=== PATIENT | female | born 1990 | race American Indian/Alaskan Native ===

== ENCOUNTER 2017-01-30 17:08 | Emergency (ER) | payer OTHER ==
[~2017-01-30] VITALS: Ht 160 cm; Wt 80.0 kg
[~2017-01-30 17:08] MED LIST: TRAM100T2 PO
[2017-01-30 17:56] LABS: HEMATOCRIT 35.3 % (34.6-47.8); HEMOGLOBIN 11.4 g/dL (11.7-16.4); WHITE BLOOD COUNT 7.4 x10^3/uL (3.4-10)
[2017-01-30 18:07] LABS: ASPARTATE AMINO TRANSFERASE 13 U/L (15-37); BLOOD UREA NITROGEN 9 mg/dL (7-18)
[2017-01-30] MEDS ORDERED: ONDANSETRON 2MG/ML, 2ML IVPush ONE (19:30)
[2017-01-30] MEDS ORDERED: MORPHINE SULFATE 4 MG/ML, 1ML IVPush PRN (19:30)
[2017-01-30] MEDS ORDERED: morphine SULFATE 10 MG/ML, 1ML ONE ×2 (19:32→19:43)
[2017-01-30] MEDS ORDERED: ONDANSETRON 2MG/ML, 2ML ONE (19:33)
[2017-01-30 20:08] LABS: HCG UR LOT HCG7030192
[2017-01-30 20:21] LABS: HCG UR OBC PASS
[2017-01-30] MEDS ORDERED: OMNIPAQUE 350 MG/ML, 100ML BOTTLE ONE (21:10)
[2017-01-30] MEDS ORDERED: LORazepam 2 MG/ML, 1ML ONE (21:13)
[2017-01-30] MEDS ORDERED: LORazepam 2 MG/ML, 1ML IVPush ONE (21:30)
[2017-01-30 22:48] VITALS: BP 123/62
== END 2017-01-30 22:51 | disposition home or self-care (01) ==
LOC: ED 21:56
DX: R10.11 Right upper quadrant pain (principal); R10.12 Left upper quadrant pain; R07.89 Other chest pain; N39.0 Urinary tract infection, site not specified
CPT/HCPCS: 36415; 70450; 71010; 71275; 74175; 76700; 80053; 81001; 81025; 83690; 85025; 85379; 87086; 93005; 96374; 96375; 99285; J2060; J2405; Q9967

== ENCOUNTER 2018-05-12 19:23 | Emergency (ER) | payer SELFPAY ==
[~2018-05-12] VITALS: Ht 157.5 cm; Wt 77.0 kg
[~2018-05-12 19:23] MED LIST changes: -TRAM100T2 PO; +TRAM100T33 PO
[2018-05-12 19:32] VITALS: BP 121/80
--- NOTE | 2018-05-12 19:42 | NUR ---
REMOVED ALL PT'S PERSONAL BELONGINGS FROM ROOM AND PLACED IN SECURITY LOCKER (1 BAG), GARAGE DOORS DOWN. PROVIDED PT WITH URINE CUP, PT UNABLE TO VOID AT THIS TIME. PT DENIES ANY SI/HI THOUGHTS AT THIS TIME. ERP TO SEE PT, AWAITING ORDERS Addendum: 05/13/18 at 0003 by CHOLO cupola charger notified of si status
[2018-05-12 20:11] LABS: BASOPHILS # (AUTO) 0.05 x10^3/uL (0-0.1); BASOPHILS % (AUTO) 1 % (0-1); EOSINOPHILS # (AUTO) 0.07 x10^3/uL (0-0.4); EOSINOPHILS % (AUTO) 1 % (1-7); LYMPHOCYTES # (AUTO) 1.79 x10^3/uL (1-3.4); LYMPHOCYTES % (AUTO) 19 % (22-44); MD NO; MEAN CORPUSCULAR HEMOGLOBIN 22.4 pg (27.0-34.8); MEAN CORPUSCULAR VOLUME 70.1 fL (80-100); MEAN PLATELET VOLUME 8.5 fL (7.4-10.4); MONOCYTES # (AUTO) 0.44 x10^3/uL (0.2-0.8); MONOCYTES % (AUTO) 5 % (2-9); NEUTROPHILS # (AUTO) 7.32 x10^3/uL (1.8-6.8); NEUTROPHILS % (AUTO) 76 % (42-75); PLATELET COUNT 350 x10^3/uL (130-400); RED BLOOD COUNT 4.97 x10^6/uL (3.82-5.3); RED CELL DISTRIBUTION WIDTH 18.5 % (9.6-15.2)
[2018-05-12 20:19] LABS: ALBUMIN 3.5 g/dL (3.4-5.0); ANION GAP 6 mmol/L (5-15); CALCIUM 8.5 mg/dL (8.5-10.1); CHLORIDE 108 mmol/L (98-107); CREATININE 0.76 mg/dL (0.55-1.02)
[2018-05-12 20:20] LABS: ACETAMINOPHEN < 2 mcg/mL (10-30); SALICYLATE LEVEL < 1.7 mg/dL (2.8-20.0)
--- NOTE | 2018-05-12 20:33 | NUR ---
pt resting on gurney, room remains secured, denies needs, nad. awaiting tele psych consult at this time
--- NOTE | 2018-05-12 20:46 | NUR ---
PT UP TO RR WITH STEADY GAIT, URINE CUP PROVIDED FOR SAMPLE.
[2018-05-12 21:18] LABS: HCG UR SG 1.015 (1.003-1.030)
[2018-05-12 21:31] LABS: AMPHETAMINE SCREEN, URINE Negative (Negative); BARBITURATE SCREEN, URINE Negative (Negative); BENZODIAZEPINE SCREEN, URINE Negative (Negative); CANNABINOID SCREEN, URINE Negative (Negative); COCAINE SCREEN, URINE Negative (Negative); METHADONE SCREEN, URINE Negative (Negative); OPIATE SCREEN, URINE Negative (Negative)
--- NOTE | 2018-05-12 22:00 | NUR ---
pt resting on gurney, denies needs, nad, respirations even and unlabored
--- NOTE | 2018-05-12 23:17 | NUR ---
PT RESTING ON DARCIE ROMO, MILE.
--- NOTE | 2018-05-12 23:18 | NUR ---
telepsych initiated, [id number] bot placed at bs.
--- NOTE | 2018-05-13 00:07 | NUR ---
pt resting with eyes closed, opens eyes to verbal response, denies needs at this time
--- NOTE | 2018-05-13 00:38 | NUR ---
report given to otto polanco. pt transferred to ed room 40
--- NOTE | 2018-05-13 00:44 | NUR ---
Received patient and patient report from PABLO Gillespie. Pt is resting comfortably awaiting telepsyc. Pt states that all of her needs are met. Sitter in place.
--- NOTE | 2018-05-13 01:18 | NUR ---
Pt sleeping and in no apparent distress. Chest rising symetrically. Sitter in place. Telepsyc monitor in place. Will continue to monitor.
--- NOTE | 2018-05-13 02:52 | NUR ---
Gloria yap in [facility] - 05/13/18 at 0253 by SJ Spoke with telepysc pycsiatris
--- NOTE | 2018-05-13 02:53 | NUR ---
Spoke with [facility] psyciatrist and technical publications writer gave him the name and number of friend of Chelle. Psyciatrist will contact friend so Swathi can be released to him. Pt is currently resting in bed.
--- NOTE | 2018-05-13 03:02 | NUR ---
Nurse received follow-up call from psyciatrist and he recommended that pt be released under the care of her friend. Psyciatrist stated that he would fax over recommendations shortly. Pt is currently in resting in bed. Sitter at bedside.
--- NOTE | 2018-05-13 04:05 | NUR ---
Pt sleeping in bed. Equal chest rise and fall. Sitter at door.
--- NOTE | 2018-05-13 04:57 | NUR ---
Education materials and follow-up paperwork given and explained to patient. Pt verbalized understanding. Pt collected her belongings and discharged with friend.
== END 2018-05-13 05:08 | disposition home or self-care (01) ==
LOC: ED 22:38
DX: F33.9 Major depressive disorder, recurrent, unspecified (principal); R45.851 Suicidal ideations; Z88.2 Allergy status to sulfonamides
CPT/HCPCS: 36415; 80048; 80307; 80329; 81025; 82040; 85025; 99284; G0480

== ENCOUNTER 2018-06-18 07:51 | Emergency (ER) | payer MEDICAID ==
[~2018-06-18] VITALS: Ht 157.5 cm; Wt 76.4 kg
--- NOTE | 2018-06-18 08:20 | NUR ---
PT TO ROOM FROM LOBBY
--- NOTE | 2018-06-18 08:30 | NUR ---
PT TO U/S VIA DEMETRIUS
[2018-06-18 08:41] LABS: CULTURE INDICATED? YES; MICROSCOPIC INDICATED
[2018-06-18 08:43] LABS: BASOPHILS # (AUTO) 0.05 x10^3/uL (0-0.1); BASOPHILS % (AUTO) 1 % (0-1); EOSINOPHILS # (AUTO) 0.08 x10^3/uL (0-0.4); EOSINOPHILS % (AUTO) 1 % (1-7); LYMPHOCYTES # (AUTO) 1.92 x10^3/uL (1-3.4); LYMPHOCYTES % (AUTO) 26 % (22-44); MD NO; MEAN CORPUSCULAR HEMOGLOBIN 22.3 pg (27.0-34.8); MEAN CORPUSCULAR HGB CONC 31.6 g/dL (32.4-35.8); MEAN CORPUSCULAR VOLUME 70.5 fL (80-100); MEAN PLATELET VOLUME 9.1 fL (7.4-10.4); MONOCYTES # (AUTO) 0.28 x10^3/uL (0.2-0.8); MONOCYTES % (AUTO) 4 % (2-9); NEUTROPHILS # (AUTO) 4.95 x10^3/uL (1.8-6.8); NEUTROPHILS % (AUTO) 68 % (42-75); PLATELET COUNT 356 x10^3/uL (130-400); RED BLOOD COUNT 5.21 x10^6/uL (3.82-5.3); RED CELL DISTRIBUTION WIDTH 18.2 % (9.6-15.2)
[2018-06-18 08:46] LABS: ALBUMIN 3.8 g/dL (3.4-5.0); ANION GAP 5 mmol/L (5-15); CHLORIDE 111 mmol/L (98-107)
--- NOTE | 2018-06-18 09:25 | NUR ---
trent RN: RN at bedside to donnie jenkins MD unable to complete exam d/t pt's discomfort. states that pt does not have any external rash or lesions, pt does have lesion inside of vagina. MD instructing pt to follow up w/ OBGYN. pt in bed, NAD, no needs at this time, awaiting DC. Report to PABLO Briceño.
--- NOTE | 2018-06-18 09:28 | NUR ---
REPORT RECEIVED, CARE ASSUMED.
[2018-06-18 10:04] VITALS: BP 103/61
--- NOTE | 2018-06-18 10:04 | NUR ---
PT LAYING ON GURNEY. PT PROVIDED WITH SELF CLEANING SUPPLIES. NO IV TO DC. REVIEWED DC INSTRUCTIONS WITH PT. UNDERSTANDING VERBALIZED. PT LEFT AMB, GAIT STEADY.
== END 2018-06-18 10:06 | disposition home or self-care (01) ==
LOC: ED 08:46
DX: A60.04 Herpesviral vulvovaginitis (principal); N30.00 Acute cystitis without hematuria; G43.909 Migraine, unspecified, not intractable, without status migrainosus
CPT/HCPCS: 36415; 76801; 80048; 81001; 82040; 84702; 85025; 86901; 87086; 99284

== ENCOUNTER 2018-11-10 12:06 | Emergency (ER) | payer SELFPAY ==
[~2018-11-10] VITALS: Ht 160 cm; Wt 73.6 kg
--- NOTE | 2018-11-10 12:45 | NUR ---
RT SIDE PAIN- DULL WITH NAUSEA SINCE 0600 THIS AM, HX OVAR CYST; DENIES DIARR/CONSTIP per triage note
[2018-11-10] MEDS ORDERED: HYDROcodone/APAP 5/325 TABLET PO ONE (13:00)
[2018-11-10] MEDS ORDERED: HYDROcodone/APAP 5/325 TABLET ONE (13:08)
[2018-11-10 13:38] LABS: MICROSCOPIC AUTO
[2018-11-10 13:39] LABS: CULTURE INDICATED? NO
--- NOTE | 2018-11-10 13:42 | NUR ---
GIVEN PAIN MED VSS
[2018-11-10 14:01] VITALS: BP 107/61
--- NOTE | 2018-11-10 14:01 | NUR ---
REPORT RECEIVED BY JOSEFINA. PT [place] ON [place] AWAKE & COMFORTABLE, RESPONDS APPROP TO STAFF, NAD, COMFORT MEASURES PROVIDED, CALL LIGHT WITHIN REACH.
[2018-11-10 14:04] LABS: ALBUMIN 3.4 g/dL (3.4-5.0); ANION GAP 5 mmol/L (5-15); CALCIUM 8.6 mg/dL (8.5-10.1); CHLORIDE 108 mmol/L (98-107); CREATININE 0.78 mg/dL (0.55-1.02)
[2018-11-10 14:05] LABS: BASOPHILS # (AUTO) 0.03 x10^3/uL (0-0.1); BASOPHILS % (AUTO) 1 % (0-1); EOSINOPHILS # (AUTO) 0.13 x10^3/uL (0-0.4); EOSINOPHILS % (AUTO) 2 % (1-7); LYMPHOCYTES # (AUTO) 1.29 x10^3/uL (1-3.4); LYMPHOCYTES % (AUTO) 19 % (22-44); MD NO; MEAN CORPUSCULAR HEMOGLOBIN 23.4 pg (27.0-34.8); MEAN CORPUSCULAR VOLUME 73.1 fL (80-100); MEAN PLATELET VOLUME 8.7 fL (7.4-10.4); MONOCYTES % (AUTO) 6 % (2-9); NEUTROPHILS # (AUTO) 4.82 x10^3/uL (1.8-6.8); NEUTROPHILS % (AUTO) 72 % (42-75); PLATELET COUNT 283 x10^3/uL (130-400); RED BLOOD COUNT 4.62 x10^6/uL (3.82-5.3); RED CELL DISTRIBUTION WIDTH 18.3 % (9.6-15.2)
--- NOTE | 2018-11-10 14:43 | NUR ---
Patient given discharge instructions and Rx, they have confirmed that they understand the instructions. Patient ambulatory with steady gait.
[2018-12-14] MEDS ORDERED: IBUP-1223 PO (09:54)
[2018-12-14] MEDS ORDERED: BACL20TA PO (09:54)
[2018-12-18] MEDS ORDERED: BUTA-177 PO (11:23)
[2018-12-20] MEDS ORDERED: CEFD300C37 PO (10:06)
== END 2018-11-10 14:43 | disposition home or self-care (01) ==
LOC: ED 13:20
DX: R10.2 Pelvic and perineal pain (principal); R10.31 Right lower quadrant pain; F32.9 Major depressive disorder, single episode, unspecified
CPT/HCPCS: 36415; 76830; 80048; 81001; 82040; 84703; 85025; 99284

== ENCOUNTER 2019-01-28 03:30 | Emergency (ER) | payer OTHER ==
[~2019-01-28 03:30] MED LIST changes: +BACL20TA PO; +BUTA-177 PO; +CEFD300C37 PO; +IBUP-1223 PO
[2019-01-28 03:33] VITALS: BP 123/72
[2019-01-28] MEDS ORDERED: BUPIVACAINE 0.25% INFIL ONE (04:00)
[2019-01-28] MEDS ORDERED: LIDOCAINE-MPF 1%, 5ML INFIL ONE (04:00)
[2019-01-28] MEDS ORDERED: BUPIVACAINE 0.25% ONE (04:05)
[2019-01-28] MEDS ORDERED: LIDOCAINE-MPF 1%, 5ML ONE (04:05)
== END 2019-01-28 04:41 | disposition home or self-care (01) ==
LOC: ED 04:20
DX: K04.7 Periapical abscess without sinus (principal)
CPT/HCPCS: 41800; 99283

== ENCOUNTER 2019-01-29 22:57 | Emergency (ER) | payer OTHER ==
[~2019-01-29] VITALS: Ht 154.9 cm; Wt 76.7 kg
[2019-01-29] MEDS ORDERED: BUPIVACAINE 0.25% ONE (23:11)
[2019-01-29] MEDS ORDERED: LIDOCAINE-MPF 1%, 2ML ONE (23:11)
[2019-01-29] MEDS ORDERED: HYDROcodone/APAP 5/325 TABLET PO ONE (23:30)
[2019-01-29] MEDS ORDERED: HYDROcodone/APAP 5/325 TABLET ONE (23:37)
[2019-01-29 23:49] VITALS: BP 136/74
== END 2019-01-29 23:52 | disposition home or self-care (01) ==
LOC: ED 23:21
DX: K08.89 Other specified disorders of teeth and supporting structures (principal); I10 Essential (primary) hypertension; G43.909 Migraine, unspecified, not intractable, without status migrainosus; Z87.891 Personal history of nicotine dependence
CPT/HCPCS: 64402; 99284

== ENCOUNTER 2019-03-26 08:19 | Emergency (ER) | payer OTHER ==
[~2019-03-26] VITALS: Ht 154.9 cm; Wt 77.5 kg
[2019-03-26] MEDS ORDERED: SODIUM CHLORIDE FLUSH 10ML SYR IVF ONE (09:00)
[2019-03-26] MEDS ORDERED: ONDANSETRON 2MG/ML, 2ML IVPush ONE (09:00)
[2019-03-26] MEDS ORDERED: MORPHINE SULFATE 4 MG/ML, 1ML IVPush PRN (09:00)
[2019-03-26] MEDS ORDERED: MORPHINE SULFATE 4 MG/ML, 1ML ONE (09:06)
[2019-03-26] MEDS ORDERED: ONDANSETRON 2MG/ML, 2ML ONE (09:06)
[2019-03-26 09:13] LABS: BASOPHILS # (AUTO) 0.01 x10^3/uL (0-0.1); BASOPHILS % (AUTO) 0 % (0-1); EOSINOPHILS # (AUTO) 0.07 x10^3/uL (0-0.4); EOSINOPHILS % (AUTO) 1 % (1-7); LYMPHOCYTES # (AUTO) 1.73 x10^3/uL (1-3.4); LYMPHOCYTES % (AUTO) 29 % (22-44); MD NO; MEAN CORPUSCULAR HEMOGLOBIN 28.9 pg (27.0-34.8); MEAN CORPUSCULAR HGB CONC 33.5 g/dL (32.4-35.8); MEAN CORPUSCULAR VOLUME 86.3 fL (80-100); MEAN PLATELET VOLUME 8.8 fL (7.4-10.4); MONOCYTES # (AUTO) 0.29 x10^3/uL (0.2-0.8); MONOCYTES % (AUTO) 5 % (2-9); NEUTROPHILS # (AUTO) 3.94 x10^3/uL (1.8-6.8); NEUTROPHILS % (AUTO) 65 % (42-75); PLATELET COUNT 242 x10^3/uL (130-400); RED BLOOD COUNT 4.75 x10^6/uL (3.82-5.3); RED CELL DISTRIBUTION WIDTH 15.7 % (9.6-15.2)
--- NOTE | 2019-03-26 09:15 | NUR ---
PT WITH C/O BRIGHT RED STOOL IN BM FOR 1 MONTH, STATES SHE HAD A LARGE BLOODY BM THIS AM AND NOW HAVING RECTAL PAIN. PT DENIES URINARY SYMPTOMS OR ABD DISCOMFORT. PIV INITIATED, PT MEDICATED PER MAR
[2019-03-26 09:21] LABS: CHLORIDE 109 mmol/L (98-107)
[2019-03-26 09:59] LABS: HCG UR SG 1.017 (1.003-1.030); MICROSCOPIC NOT IND
[2019-03-26 10:01] LABS: CULTURE INDICATED? NO
[2019-03-26 10:13] LABS: ALBUMIN 3.5 g/dL (3.4-5.0); ANION GAP 4 mmol/L (5-15); CALCIUM 8.8 mg/dL (8.5-10.1)
--- NOTE | 2019-03-26 10:27 | NUR ---
PT RESTING ON GURNEY AT THIS TIME, ALEJANDRA ORTEGA NOTED. PT DENIES NEEDS AT THIS TIME
[2019-03-26 10:35] LABS: ALANINE AMINOTRANSFERASE 18 U/L (12-78); ALKALINE PHOSPHATASE 70 U/L (45-117); BILIRUBIN,TOTAL 0.7 mg/dL (0.2-1.0); CREATININE 0.66 mg/dL (0.55-1.02)
--- NOTE | 2019-03-26 10:36 | NUR ---
ASSISTED ERPROVIDER WITH ANNULOSCOPE PROCEDURE, PT TOLERATED WELL
--- NOTE | 2019-03-26 11:14 | NUR ---
PT TO IMAGING AT THIS TIME
[2019-03-26] MEDS ORDERED: OMNIPAQUE 350 MG/ML, 100ML BOTTLE ONE (11:24)
[2019-03-26 11:41] VITALS: BP 101/62
--- NOTE | 2019-03-26 11:42 | NUR ---
PT BACK FROM CT, VSS, SIG OTHER AT BEDSIDE, NAD NOTED, PT DENIES NEEDS
== END 2019-03-26 12:24 | disposition home or self-care (01) ==
LOC: ED 09:07
DX: K64.8 Other hemorrhoids (principal)
CPT/HCPCS: 36415; 74177; 80053; 81003; 81025; 85025; 96374; 96375; 99284; J2270; J2405; Q9967

== ENCOUNTER 2019-04-07 15:30 | Emergency (ER) | payer OTHER ==
[~2019-04-07] VITALS: Ht 154.9 cm; Wt 79.7 kg
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
[2019-04-07] MEDS ORDERED: HYDR-3237 PO (15:57)
[2019-04-07] MEDS ORDERED: OMEPRAZOLE (15:57)
[2019-04-07] MEDS ORDERED: ONDA-89 PO (15:57)
[2019-04-07] MEDS ORDERED: ANUSOL-HC (15:57)
[2019-04-07] MEDS ORDERED: IBUP-1222 PO (15:57)
[2019-04-07] MEDS ORDERED: BENTYL (15:57)
[2019-04-07] MEDS ORDERED: NITR100C PO (15:57)
--- NOTE | 2019-04-07 16:50 | NUR ---
AMBULATORY TO MRA, ACCOMPANIED BY LOGGING EQUIPMENT MECHANIC
[2019-04-07 17:31] LABS: HCG UR SG 1.011 (1.003-1.030); MICROSCOPIC NOT IND
[2019-04-07 17:32] LABS: CULTURE INDICATED? NO
--- NOTE | 2019-04-07 17:49 | NUR ---
PT REPORT TO BREAK RN: SHINE. PT CARE TRANSFERRED.
--- NOTE | 2019-04-07 18:08 | NUR ---
BREAK RN: PT RETURNED TO ROOM FROM MRI. UPDATED ON POC, WAITING FOR RESULTS AND RE-EVAL. NO NEEDS EXPRESSED AT THIS TIME.
[2019-04-07 18:34] LABS: ALBUMIN 3.3 g/dL (3.4-5.0); ANION GAP 4 mmol/L (5-15); CALCIUM 8.8 mg/dL (8.5-10.1); CHLORIDE 109 mmol/L (98-107)
--- NOTE | 2019-04-07 18:34 | NUR ---
REPORT TO CARRIE SHAH.
[2019-04-07 18:36] LABS: CREATININE 0.68 mg/dL (0.55-1.02)
[2019-04-07 18:41] LABS: BASOPHILS # (AUTO) 0.02 x10^3/uL (0-0.1); BASOPHILS % (AUTO) 0 % (0-1); EOSINOPHILS # (AUTO) 0.11 x10^3/uL (0-0.4); EOSINOPHILS % (AUTO) 2 % (1-7); LYMPHOCYTES # (AUTO) 1.92 x10^3/uL (1-3.4); LYMPHOCYTES % (AUTO) 25 % (22-44); MD NO; MEAN CORPUSCULAR HEMOGLOBIN 29.2 pg (27.0-34.8); MEAN CORPUSCULAR HGB CONC 33.5 g/dL (32.4-35.8); MEAN PLATELET VOLUME 9.1 fL (7.4-10.4); MONOCYTES # (AUTO) 0.42 x10^3/uL (0.2-0.8); MONOCYTES % (AUTO) 5 % (2-9); NEUTROPHILS # (AUTO) 5.27 x10^3/uL (1.8-6.8); NEUTROPHILS % (AUTO) 68 % (42-75); PLATELET COUNT 224 x10^3/uL (130-400); RED BLOOD COUNT 4.51 x10^6/uL (3.82-5.3); RED CELL DISTRIBUTION WIDTH 14.4 % (9.6-15.2)
--- NOTE | 2019-04-07 19:04 | NUR ---
PT RESTING QUIETLY ON GURNEY; AWAITING RADIOLOGY RESULTS.
--- NOTE | 2019-04-07 19:05 | NUR ---
PT REFUSED PAIN MED, AT THIS TIME.
--- NOTE | 2019-04-07 19:52 | NUR ---
CARE ASSUMED FOR DC. PT DC'D HOME WITH REFERRAL AND UNDERSTANDING OF INSTRUCTIONS. PT AND FAMILY MEMBER TO DC DESK, PT GAIT STEADY.
[2019-04-07 19:53] VITALS: BP 103/58
== END 2019-04-07 19:56 | disposition home or self-care (01) ==
LOC: ED 19:02
DX: G43.709 Chronic migraine without aura, not intractable, without status migrainosus (principal); H53.8 Other visual disturbances; R10.9 Unspecified abdominal pain; I10 Essential (primary) hypertension
CPT/HCPCS: 36415; 70544; 70553; 80048; 81003; 81025; 82040; 85025; 99284

== ENCOUNTER 2019-04-12 18:49 | Emergency (ER) | payer OTHER ==
[~2019-04-12] VITALS: Ht 157.5 cm; Wt 77.9 kg
[~2019-04-12 18:49] MED LIST changes: +ANUSOL-HC; +BENTYL; +HYDR-3237 PO; +IBUP-1222 PO; +NITR100C PO; +OMEPRAZOLE; +ONDA-89 PO
[2019-04-12 19:32] LABS: ALANINE AMINOTRANSFERASE 14 U/L (12-78); ALBUMIN 3.6 g/dL (3.4-5.0); ANION GAP 7 mmol/L (5-15); CALCIUM 8.9 mg/dL (8.5-10.1); CHLORIDE 108 mmol/L (98-107); CREATININE 0.72 mg/dL (0.55-1.02)
[2019-04-12 19:37] LABS: ALKALINE PHOSPHATASE 91 U/L (45-117); BILIRUBIN,TOTAL 0.4 mg/dL (0.2-1.0); TOTAL PROTEIN 7.8 g/dL (6.4-8.2)
[2019-04-12 19:48] LABS: BASOPHILS # (AUTO) 0.02 x10^3/uL (0-0.1); BASOPHILS % (AUTO) 0 % (0-1); EOSINOPHILS # (AUTO) 0.11 x10^3/uL (0-0.4); EOSINOPHILS % (AUTO) 1 % (1-7); LYMPHOCYTES # (AUTO) 2.17 x10^3/uL (1-3.4); LYMPHOCYTES % (AUTO) 29 % (22-44); MD NO; MEAN CORPUSCULAR HEMOGLOBIN 29.5 pg (27.0-34.8); MEAN CORPUSCULAR HGB CONC 33.8 g/dL (32.4-35.8); MEAN CORPUSCULAR VOLUME 87.2 fL (80-100); MEAN PLATELET VOLUME 8.8 fL (7.4-10.4); MONOCYTES # (AUTO) 0.48 x10^3/uL (0.2-0.8); MONOCYTES % (AUTO) 6 % (2-9); NEUTROPHILS # (AUTO) 4.72 x10^3/uL (1.8-6.8); NEUTROPHILS % (AUTO) 63 % (42-75); PLATELET COUNT 261 x10^3/uL (130-400); RED BLOOD COUNT 4.62 x10^6/uL (3.82-5.3); RED CELL DISTRIBUTION WIDTH 14.5 % (9.6-15.2)
--- NOTE | 2019-04-12 20:09 | NUR ---
pt to room at this time.
--- NOTE | 2019-04-12 20:31 | NUR ---
pT HERE FOR ABD PAIN X 2 WEEKS. PT REPORTS SHE HAS ANAL PAIN WELL. PT REPORTS SHE WAS SEEN FOR HER ABD PAIN AND DID NOT HAVE ANY IMPROVEMENT WITH THE MEDICATIONS SHE WAS PERSCRIBED LAST WEEK. PT CONNECTED TO MONITORS AND CALL LIGHT IN REACH.
[2019-04-12 20:53] LABS: MICROSCOPIC INDICATED
[2019-04-12] MEDS ORDERED: OXYcodone/APAP 5/325MG TABLET PO ONE (21:00)
[2019-04-12 21:09] LABS: CULTURE INDICATED? YES
[2019-04-12] MEDS ORDERED: OXYcodone/APAP 5/325MG TABLET ONE (21:31)
--- NOTE | 2019-04-12 21:33 | NUR ---
PT MEDICATED PER EMAR.
--- NOTE | 2019-04-12 21:58 | NUR ---
chart up for recheck at this time.
[2019-04-12] MEDS ORDERED: KETOROLAC 30 MG/1 ML IM ONE (22:30)
[2019-04-12] MEDS ORDERED: KETOROLAC 60 MG/2 ML IM ONE (22:30)
[2019-04-12] MEDS ORDERED: KETOROLAC 60 MG/2 ML ONE (22:32)
[2019-04-12 22:51] VITALS: BP 111/63
--- NOTE | 2019-04-12 22:51 | NUR ---
PT MEDICATED PER EMAR.
--- NOTE | 2019-04-12 23:12 | NUR ---
Patient/Caregiver given discharge instructions and they have confirmed that they understand the instructions. Patient ambulatory with steady gait.
== END 2019-04-12 23:20 | disposition home or self-care (01) ==
LOC: ED 22:00
DX: K64.8 Other hemorrhoids (principal); I10 Essential (primary) hypertension; Z87.891 Personal history of nicotine dependence
CPT/HCPCS: 36415; 80053; 81001; 84703; 85025; 87086; 96372; 99283; J1885

== ENCOUNTER 2019-04-28 14:11 | Day surgery (SDC) | payer OTHER ==
[~2019-04-28] VITALS: Ht 157.5 cm; Wt 78.1 kg
[~2019-04-28 14:11] MED LIST changes: +ROCURONIUM 10MG/ML,5ML ONE
[2019-04-28] MEDS ORDERED: LACTATED RINGERS 1,000 ML IV SCH (14:27)
[2019-04-28 14:43] VITALS: BP 115/81
[2019-04-28] MEDS ORDERED: BUPIVACAINE LIPOSOME/PF 10ML INFIL ONE ×2 (16:03→16:12)
[2019-04-28] MEDS ORDERED: MIDAZOLAM 1 MG/ML, 2ML ONE (16:04)
[2019-04-28] MEDS ORDERED: FENTANYL PF 250 MCG/5ML ONE (16:05)
[2019-04-28] MEDS ORDERED: SUCCINYLCHOLINE 20 MG/ML, 10ML ONE ×2 (16:05→16:35)
[2019-04-28] MEDS ORDERED: SILVER SULF. CRM 1% , 25GM ONE (16:13)
[2019-04-28] MEDS ORDERED: CEFOTETAN PMX 1GM/50ML 50 ML ONE ×2 (16:26→16:27)
[2019-04-28] MEDS ORDERED: DEXAMETHASONE 4 MG/ML, 1ML ONE (16:28)
[2019-04-28] MEDS ORDERED: ONDANSETRON 2MG/ML, 2ML ONE ×2 (16:34→19:17)
[2019-04-28] MEDS ORDERED: PROPOFOL 10 MG/ML, 20ML ONE (16:35)
[2019-04-28] MEDS ORDERED: KETOROLAC 30 MG/1 ML ONE (16:35)
[2019-04-28] MEDS ORDERED: MEPERIDINE/PF 25MG/ML,1ML IVPush PRN (17:00)
[2019-04-28] MEDS ORDERED: HYDROmorphone 2 MG/ML, 1ML IVPush PRN (17:00)
[2019-04-28] MEDS ORDERED: PROMETHAZINE 25 MG/ML, 1ML IV PRN (17:00)
[2019-04-28] MEDS ORDERED: ACETAMINOPHEN 325 MG TABLET PO PRN (17:00)
[2019-04-28] MEDS ORDERED: OXYcodone 5 MG/5 ML ORAL.SOL UDC PO PRN (17:00)
[2019-04-28] MEDS ORDERED: hydrALAzine 20 MG/ML, 1ML IV PRN (17:00)
[2019-04-28] MEDS ORDERED: LABETALOL 5MG/ML, 20ML IV PRN (17:00)
[2019-04-28] MEDS ORDERED: OXYcodone 5 MG/5 ML ORAL.SOL UDC ONE (17:01)
[2019-04-28] MEDS ORDERED: DIAZEPAM 5 MG/ML, 2ML ONE (17:01)
[2019-04-28] MEDS ORDERED: FENTANYL PF 100 MCG/2ML ONE (17:01)
[2019-04-28] MEDS: FENTANYL PF 100 MCG/2ML IV PRN ×2 (17:10→17:35)
[2019-04-28] MEDS ORDERED: ACETAMINOPHEN 325 MG TABLET ONE (17:13)
[2019-04-28] MEDS ORDERED: ACETAMINOPHEN 650 MG/20.3 ML UDC ONE (17:13)
[2019-04-28] MEDS ORDERED: DIAZEPAM 5 MG/ML, 2ML IVPush PRN (17:30)
[2019-04-28] MEDS ORDERED: morphine SULFATE 10 MG/ML, 1ML ONE (18:17)
[2019-04-28] MEDS ORDERED: morphine SULFATE 10 MG/ML, 1ML IVPush PRN (18:30)
[2019-04-28] MEDS ORDERED: SCOPOLAMINE PATCH, 1.5MG PATCH.TD72 TD ONE (19:14)
[2019-04-28] MEDS ORDERED: SCOPOLAMINE 1MG PATCH TD ONE (19:30)
[2019-04-28] MEDS ORDERED: ONDANSETRON 2MG/ML, 2ML IVPush ONE (19:30)
== END 2019-04-28 21:01 | disposition home or self-care (01) ==
LOC: OR 14:11 → 4NW 19:05 → OR 21:01
PROVIDERS: ATTEND Surgery
DX: K64.4 Residual hemorrhoidal skin tags (principal); K64.8 Other hemorrhoids; Z87.891 Personal history of nicotine dependence; Z88.2 Allergy status to sulfonamides; Z98.890 Other specified postprocedural states; Z83.3 Family history of diabetes mellitus; Z82.49 Family history of ischemic heart disease and other diseases of the circulatory system
CPT/HCPCS: 46260; 81025; 88304; J0330; J1100; J1885; J2250; J2270; J2405; J2704; J3010; J3360; J3490; J7120; G0378

== ENCOUNTER 2019-05-03 19:38 | Emergency (ER) | payer OTHER ==
[~2019-05-03] VITALS: Ht 157.5 cm; Wt 80.0 kg
[~2019-05-03 19:38] MED LIST changes: -ROCURONIUM 10MG/ML,5ML ONE
[2019-05-03] MEDS ORDERED: SODIUM CHLORIDE FLUSH 10ML SYR IVF ONE (20:00)
--- NOTE | 2019-05-03 20:20 | NUR ---
pt to room from lobby
[2019-05-03 20:34] LABS: BASOPHILS # (AUTO) 0.02 x10^3/uL (0-0.1); BASOPHILS % (AUTO) 0 % (0-1); EOSINOPHILS # (AUTO) 0.13 x10^3/uL (0-0.4); EOSINOPHILS % (AUTO) 1 % (1-7); LYMPHOCYTES # (AUTO) 1.63 x10^3/uL (1-3.4); LYMPHOCYTES % (AUTO) 16 % (22-44); MD NO; MEAN CORPUSCULAR HEMOGLOBIN 29.7 pg (27.0-34.8); MEAN CORPUSCULAR HGB CONC 33.8 g/dL (32.4-35.8); MEAN CORPUSCULAR VOLUME 87.9 fL (80-100); MEAN PLATELET VOLUME 8.9 fL (7.4-10.4); MONOCYTES # (AUTO) 0.58 x10^3/uL (0.2-0.8); MONOCYTES % (AUTO) 6 % (2-9); NEUTROPHILS # (AUTO) 8.05 x10^3/uL (1.8-6.8); NEUTROPHILS % (AUTO) 77 % (42-75); PLATELET COUNT 266 x10^3/uL (130-400); RED BLOOD COUNT 5.14 x10^6/uL (3.82-5.3); RED CELL DISTRIBUTION WIDTH 13.7 % (9.6-15.2)
--- NOTE | 2019-05-03 20:36 | NUR ---
DR. STRICKLAND AT BEDSIDE EVALUATING PT
[2019-05-03] MEDS ORDERED: HYDROmorphone 1 MG/ML, 1ML INJ ONE ×2 (20:42→21:49)
[2019-05-03] MEDS ORDERED: ONDANSETRON 2MG/ML, 2ML ONE (20:42)
[2019-05-03 20:43] LABS: ALANINE AMINOTRANSFERASE 20 U/L (12-78); ALBUMIN 3.6 g/dL (3.4-5.0); ANION GAP 8 mmol/L (5-15); CALCIUM 9.1 mg/dL (8.5-10.1); CHLORIDE 105 mmol/L (98-107); CREATININE 0.72 mg/dL (0.55-1.02)
--- NOTE | 2019-05-03 20:46 | NUR ---
CT PENDING NEG. BETA.
[2019-05-03 20:47] LABS: ALKALINE PHOSPHATASE 83 U/L (45-117); BILIRUBIN,TOTAL 0.4 mg/dL (0.2-1.0)
[2019-05-03] MEDS: HYDROmorphone 2 MG/ML, 1ML IVPush PRN ×2 (20:48→22:01)
--- NOTE | 2019-05-03 20:48 | NUR ---
IV ESTABLISHED, PT MEDICATED PER EMAR. 5 RIGHTS ADDRESSED.
[2019-05-03] MEDS ORDERED: ONDANSETRON 2MG/ML, 2ML IVPush ONE (21:00)
--- NOTE | 2019-05-03 21:22 | NUR ---
PT REPORTS RELIEF FROM PAIN, IT WENT FROM A 10/10 TO A 2/10. FAMILY AT BEDSIDE, ALL VITALS STABLE.
--- NOTE | 2019-05-03 21:29 | NUR ---
PT TO CT
[2019-05-03] MEDS ORDERED: OMNIPAQUE 350 MG/ML, 100ML BOTTLE ONE (21:41)
[2019-05-03] MEDS ORDERED: PROMETHAZINE 25 MG/ML, 1ML ONE (21:49)
--- NOTE | 2019-05-03 21:57 | NUR ---
PT BACK FROM CT. STILL IN PAIN. PT MEDICATED PER EMAR FOR PAIN. PT ALSO NAUSEATED AND VOMITING. ORDERS RECEIVED FROM DR. STRICKLAND TO MEDICATE WITH PHENERGAN IM
[2019-05-03 21:58] VITALS: BP 110/65
[2019-05-03] MEDS ORDERED: PROMETHAZINE 25 MG/ML, 1ML IM ONE (22:00)
--- NOTE | 2019-05-03 22:01 | NUR ---
DR. STRICKLAND AT BEDSIDE UPDATING PT ON TEST RESULTS
--- NOTE | 2019-05-03 22:03 | NUR ---
PT TO BE DISCHARGED BUT MONITORED UNTIL PAIN AND VOMITING ARE UNDER CONTROL
--- NOTE | 2019-05-03 23:02 | NUR ---
PT REPORTS FEELING MUCH MORE COMFORTABLE. NO VOMITING AND STATES PAIN IS UNDER CONTROL
--- NOTE | 2019-05-03 23:10 | NUR ---
Patient/Caregiver given discharge instructions and they have confirmed that they understand the instructions. Patient ambulatory with steady gait.
== END 2019-05-03 23:19 | disposition home or self-care (01) ==
LOC: ED 20:40
DX: K62.89 Other specified diseases of anus and rectum (principal); R10.84 Generalized abdominal pain; I10 Essential (primary) hypertension; G43.909 Migraine, unspecified, not intractable, without status migrainosus
CPT/HCPCS: 36415; 74177; 80053; 84703; 85025; 96372; 96374; 96375; 96376; 99285; J1170; J2405; J2550; Q9967

== ENCOUNTER 2019-11-16 04:08 | Emergency (ER) | payer OTHER ==
[~2019-11-16] VITALS: Ht 154.9 cm; Wt 82.0 kg
--- NOTE | 2019-11-16 04:34 | NUR ---
ERP TO BEDSIDE.
[2019-11-16] MEDS ORDERED: FAMOTIDINE 20 MG/2 ML IV ONE (05:00)
[2019-11-16] MEDS ORDERED: MAALOX/HYOSCYAMINE/LIDOCAINE 45 ML BTL PO ONE (05:00)
[2019-11-16] MEDS ORDERED: ONDANSETRON 2MG/ML, 2ML IVPush ONE (05:00)
[2019-11-16] MEDS ORDERED: SODIUM CHLORIDE 0.9% 1,000ML IVBOLUS ONE (05:00)
[2019-11-16] MEDS ORDERED: SODIUM CHLORIDE FLUSH 10ML SYR IVF ONE (05:00)
[2019-11-16] MEDS ORDERED: ONDANSETRON 2MG/ML, 2ML ONE (05:02)
[2019-11-16] MEDS ORDERED: MAALOX/HYOSCYAMINE/LIDOCAINE 45 ML BTL ONE (05:03)
[2019-11-16] MEDS ORDERED: FAMOTIDINE 20 MG/2 ML ONE (05:04)
[2019-11-16 05:26] LABS: BASOPHILS # (AUTO) 0.04 x10^3/uL (0-0.1); BASOPHILS % (AUTO) 1 % (0-1); EOSINOPHILS # (AUTO) 0.08 x10^3/uL (0-0.4); EOSINOPHILS % (AUTO) 1 % (1-7); LYMPHOCYTES # (AUTO) 1.54 x10^3/uL (1-3.4); LYMPHOCYTES % (AUTO) 26 % (22-44); MD NO; MEAN CORPUSCULAR HEMOGLOBIN 27.3 pg (27.0-34.8); MEAN CORPUSCULAR VOLUME 82.9 fL (80-100); MEAN PLATELET VOLUME 9.1 fL (7.4-10.4); MONOCYTES # (AUTO) 0.34 x10^3/uL (0.2-0.8); MONOCYTES % (AUTO) 6 % (2-9); NEUTROPHILS # (AUTO) 3.93 x10^3/uL (1.8-6.8); NEUTROPHILS % (AUTO) 66 % (42-75); PLATELET COUNT 255 x10^3/uL (130-400); RED BLOOD COUNT 4.86 x10^6/uL (3.82-5.3)
--- NOTE | 2019-11-16 05:26 | NUR ---
LATE ENTRY MEJIA NOTE DUE TO PT CARE: THIS PT PRESENTS TO THE ER FROM HOME. SHE'S BEEN EXPERIENCING N/V/D SINCE YESTERDAY. SHE'S C/O GENERALIZED BODY ACHES AND FLANK PAIN, SHE HAS A HX OF "KIDNEY PROBLEMS BUT DOESN'T KNOW THE DIAGNOSIS AND DOESN'T TAKE MEDS AND IS NOT ON DIALYSIS." SHE HAS BEEN TO THE BATHROOM TWICE SINCE GETTING BACK TO HER ROOM. STRAIGHT CATH DONE BECAUSE PT IS CURRENTLY MENSTRATING. PT TOLERATED WELL. IV STARTED AND LABS DRAWN. PT MEDICATED TO MAY. PT HAS VOMIT BAG IN HAND. CELL PHONE AND CALL LIGHT IN REACH. PT IS CONNECTED TO CARDIAC, BP AND O2 MONITORS. US AT BEDSIDE NOW.
[2019-11-16 05:39] LABS: ALANINE AMINOTRANSFERASE 17 U/L (12-78); ALBUMIN 3.5 g/dL (3.4-5.0); ANION GAP 6 mmol/L (5-15); CHLORIDE 110 mmol/L (98-107); CREATININE 0.83 mg/dL (0.55-1.02)
[2019-11-16 05:39] LABS: MICROSCOPIC INDICATED
[2019-11-16 05:44] LABS: ALKALINE PHOSPHATASE 95 U/L (45-117); BILIRUBIN,TOTAL 0.4 mg/dL (0.2-1.0); TOTAL PROTEIN 7.5 g/dL (6.4-8.2)
[2019-11-16 06:08] VITALS: BP 102/50
--- NOTE | 2019-11-16 06:17 | NUR ---
"THE NAUSEA AND THE DIARRHEA HAS EASED UP." LIGHTS OFF TO PROMOTE REST. PT UPDATED ON POC. AWAITING US READ AND WILL PLACE CHART BACK UP FOR RECHECK.
== END 2019-11-16 06:50 | disposition home or self-care (01) ==
LOC: ED 05:51
DX: R11.2 Nausea with vomiting, unspecified (principal); R19.7 Diarrhea, unspecified; B34.9 Viral infection, unspecified; R05 Cough; M79.10 Myalgia, unspecified site; G43.909 Migraine, unspecified, not intractable, without status migrainosus; I10 Essential (primary) hypertension; Z88.2 Allergy status to sulfonamides
CPT/HCPCS: 71045; 76700; 80053; 81001; 83690; 84443; 84703; 85025; 96361; 96374; 96375; 99285; J2405; J3490; J7030; 36415; 87635

== ENCOUNTER 2019-11-19 08:02 | Emergency (ER) | payer OTHER ==
[~2019-11-19] VITALS: Ht 157.5 cm; Wt 81.2 kg
--- NOTE | 2019-11-19 08:45 | NUR ---
THIS IS A 29 YO F W/ C/O LOW BACK PAIN AND NAUSEA SINCE EVAL AT THIS FACILITY ON 11/15. PT DENIES EPISODES OF VOMITING TODAY. PT STATES HX OF KIDNEY INFECTIONS. DENIES SYMPTOMS. PT RESTING ON [employer] W/ CALL LIGHT IN REACH, CONNECTED TO MONITORING, VSS, NADN.
[2019-11-19] MEDS ORDERED: SODIUM CHLORIDE FLUSH 10ML SYR IVF ONE (09:00)
[2019-11-19] MEDS ORDERED: ONDANSETRON 2MG/ML, 2ML IVPush ONE (09:00)
[2019-11-19] MEDS ORDERED: SODIUM CHLORIDE 0.9% 1,000ML IVBOLUS ONE (09:00)
[2019-11-19] MEDS ORDERED: FAMOTIDINE 20 MG/2 ML IV ONE (09:00)
[2019-11-19] MEDS ORDERED: ONDANSETRON 2MG/ML, 2ML ONE (09:01)
[2019-11-19] MEDS ORDERED: FAMOTIDINE 20 MG/2 ML ONE (09:02)
[2019-11-19 09:07] VITALS: BP 102/62
[2019-11-19 09:08] LABS: BASOPHILS # (AUTO) 0.02 x10^3/uL (0-0.1); BASOPHILS % (AUTO) 0 % (0-1); EOSINOPHILS # (AUTO) 0.07 x10^3/uL (0-0.4); EOSINOPHILS % (AUTO) 1 % (1-7); LYMPHOCYTES # (AUTO) 1.64 x10^3/uL (1-3.4); LYMPHOCYTES % (AUTO) 26 % (22-44); MD NO; MEAN CORPUSCULAR HEMOGLOBIN 26.5 pg (27.0-34.8); MEAN CORPUSCULAR HGB CONC 31.8 g/dL (32.4-35.8); MEAN CORPUSCULAR VOLUME 83.3 fL (80-100); MEAN PLATELET VOLUME 8.7 fL (7.4-10.4); MONOCYTES # (AUTO) 0.37 x10^3/uL (0.2-0.8); MONOCYTES % (AUTO) 6 % (2-9); NEUTROPHILS # (AUTO) 4.17 x10^3/uL (1.8-6.8); NEUTROPHILS % (AUTO) 67 % (42-75); PLATELET COUNT 230 x10^3/uL (130-400); RED BLOOD COUNT 4.98 x10^6/uL (3.82-5.3); RED CELL DISTRIBUTION WIDTH 15.6 % (9.6-15.2)
[2019-11-19 09:11] LABS: ALBUMIN 3.3 g/dL (3.4-5.0); ANION GAP 5 mmol/L (5-15); CALCIUM 8.6 mg/dL (8.5-10.1); CHLORIDE 108 mmol/L (98-107); CREATININE 0.77 mg/dL (0.55-1.02)
--- NOTE | 2019-11-19 09:14 | NUR ---
PIV STARTED BY HOSPITAL SUPERINTENDENT STUDENT, LABS DRAWN AND PT MEDICATED PER EMAR. PT RESTING ON [employer] W/ CALL LIGHT IN REACH. CONNECTED TO MONITORING, VSS, NADN.
--- NOTE | 2019-11-19 09:26 | NUR ---
PT AMBULATED TO THE BR W/ A STEADY GAIT. HAT PLACED IN BATHROOM FOR STOOL SAMPLE COLLECTION.
--- NOTE | 2019-11-19 09:28 | NUR ---
PT UNABLE TO PROVIDE STOOL SAMPLE. AT BEDSIDE FOR RECHECK.
--- NOTE | 2019-11-19 10:14 | NUR ---
Report called to Bimal. All questions and concerns addressed and answered. pt ready for transfer.
== END 2019-11-19 10:21 | disposition home or self-care (01) ==
LOC: ED 09:15
DX: B34.9 Viral infection, unspecified (principal); R11.2 Nausea with vomiting, unspecified; J02.9 Acute pharyngitis, unspecified; R19.7 Diarrhea, unspecified; R00.0 Tachycardia, unspecified
CPT/HCPCS: 36415; 71045; 80048; 82040; 85025; 87081; 87635; 87880; 93005; 96374; 96375; 99285; J2405; J3490; J7030

== ENCOUNTER 2020-03-31 07:20 | Emergency (ER) | payer OTHER ==
[~2020-03-31] VITALS: Ht 157.5 cm; Wt 80.1 kg
--- NOTE | 2020-03-31 07:38 | NUR ---
PATIENT WALKED BACK FROM TRIAGE WITH CHIEF C/O PRODUCTIVE COUGH AND ABD PAIN. PATIENT STATES SHE HAS BEEN COUGHING X1 WEEK AND HER ABD "FEELS INFLAMED" X2 DAYS. PATIENT REPORTS SOB. PATIENT DENIES FEVER, DENIES N/V/D. NADN, VSS, CALL LIGHT WITHIN REACH.
[2020-03-31] MEDS ORDERED: MAALOX/HYOSCYAMINE/LIDOCAINE 45 ML BTL ONE (08:15)
[2020-03-31 08:25] LABS: BASOPHILS % (AUTO) 0 % (0-1); EOSINOPHILS % (AUTO) 3 % (1-7); LYMPHOCYTES % (AUTO) 23 % (22-44); MEAN CORPUSCULAR HEMOGLOBIN 26.6 pg (27.0-34.8); MEAN CORPUSCULAR HGB CONC 33.1 g/dL (32.4-35.8); MEAN PLATELET VOLUME 8.5 fL (7.4-10.4); MONOCYTES % (AUTO) 7 % (2-9); NEUTROPHILS % (AUTO) 67 % (42-75); PLATELET COUNT 232 x10^3/uL (130-400); RED BLOOD COUNT 4.47 x10^6/uL (3.82-5.3); RED CELL DISTRIBUTION WIDTH 15.8 % (9.6-15.2)
[2020-03-31 08:28] LABS: MD NO
[2020-03-31] MEDS ORDERED: MAALOX/HYOSCYAMINE/LIDOCAINE 45 ML BTL PO ONE (08:30)
[2020-03-31 08:35] LABS: ALANINE AMINOTRANSFERASE 17 U/L (12-78); ALBUMIN 3.1 g/dL (3.4-5.0); ANION GAP 7 mmol/L (5-15); CALCIUM 8.2 mg/dL (8.5-10.1); CHLORIDE 110 mmol/L (98-107); CREATININE 0.65 mg/dL (0.55-1.02)
[2020-03-31 08:40] LABS: ALKALINE PHOSPHATASE 81 U/L (45-117); BILIRUBIN,TOTAL 0.3 mg/dL (0.2-1.0); TOTAL PROTEIN 6.7 g/dL (6.4-8.2)
[2020-03-31 09:06] VITALS: BP 99/46
--- NOTE | 2020-03-31 09:07 | NUR ---
PT STATES NO IMPROVEMENT AFTER GI COCKTAIL. OBTAINED COVID SWAB AND TO BE DISCHARGED.
== END 2020-03-31 09:29 | disposition home or self-care (01) ==
LOC: ED 09:23
DX: J20.9 Acute bronchitis, unspecified (principal); Z20.822 Contact with and (suspected) exposure to COVID-19; R05 Cough; R10.10 Upper abdominal pain, unspecified
CPT/HCPCS: 36415; 71045; 80053; 83690; 84703; 85025; 87635; 93005; 99285

== ENCOUNTER 2020-06-16 14:27 | Emergency (ER) | payer OTHER ==
[~2020-06-16] VITALS: Ht 157.5 cm; Wt 76.0 kg
--- NOTE | 2020-06-16 15:00 | NUR ---
LOCKSMITH: CSPINE PRECAUTIONS IMPLEMENTED.
--- NOTE | 2020-06-16 15:26 | NUR ---
CHIEF PSYCHOLOGY: PT TO ROOM FROM LOBBY AT THIS TIME VIA WHEELCHAIR WITH TATTOO DESIGNER. C-SPINE PRECAUTIONS AND C-COLLAR IN PLACE.
--- NOTE | 2020-06-16 16:40 | NUR ---
PT OFF THE FLOOR TO CT
--- NOTE | 2020-06-16 16:58 | NUR ---
PT BACK FROM CT
[2020-06-16] MEDS ORDERED: HYDROcodone/APAP 5/325 TABLET ONE (18:23)
[2020-06-16 18:27] VITALS: BP 110/67
[2020-06-16] MEDS ORDERED: HYDROcodone/APAP 5/325 TABLET PO ONE (18:30)
--- NOTE | 2020-06-16 19:01 | NUR ---
PT REC'VD DISCHARGE INSTRUCTIONS AND EDUCATION. PT HAD NO FURTHER QUESTIONS. PT AMBULATED TO DC AREA WITH FAMILY, STEADY GAIT.
== END 2020-06-16 19:12 | disposition home or self-care (01) ==
LOC: ED 19:01
DX: S13.4XXA Sprain of ligaments of cervical spine, initial encounter (principal); S23.3XXA Sprain of ligaments of thoracic spine, initial encounter; S33.5XXA Sprain of ligaments of lumbar spine, initial encounter; I10 Essential (primary) hypertension; G43.909 Migraine, unspecified, not intractable, without status migrainosus; F17.200 Nicotine dependence, unspecified, uncomplicated; V49.49XA Driver injured in collision with other motor vehicles in traffic accident, initial encounter; Y93.89 Activity, other specified; Y92.410 Unspecified street and highway as the place of occurrence of the external cause; Y99.8 Other external cause status
CPT/HCPCS: 71045; 72072; 72125; 99284

== ENCOUNTER 2020-08-28 22:51 | Emergency (ER) | payer OTHER ==
[~2020-08-28] VITALS: Ht 157.5 cm; Wt 72.0 kg
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
[2020-08-31] MEDS ORDERED: IBUPROFEN 200 MG TABLET PO ONE
[2020-08-31] MEDS ORDERED: IBUPROFEN 800 MG TABLET ONE (00:32)
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
[2020-08-31 01:43] VITALS: BP 110/66
--- NOTE | 2020-08-31 01:44 | NUR ---
PT TO BE DC'D, OFFICERS AT BS AT THIS TIME. NO NEW ORDERS AT THIS TIME. PT NAD, RESTING ON GURNEY, NO DEFORMITIES OR NEW BRUISES OR SWELLING NOTED. WCTM.
--- NOTE | 2020-08-31 02:11 | NUR ---
Patient given discharge instructions and they have confirmed that they understand the instructions. Patient ambulatory with steady gait. NAD, all questions answered appropriately, denies additional needs at this time. No personal belongings left in room after discharge.
== END 2020-08-31 02:12 | disposition home or self-care (01) ==
LOC: ED 22:51
DX: S40.021A Contusion of right upper arm, initial encounter (principal); S40.022A Contusion of left upper arm, initial encounter; S80.02XA Contusion of left knee, initial encounter; S80.01XA Contusion of right knee, initial encounter; S80.11XA Contusion of right lower leg, initial encounter; I10 Essential (primary) hypertension; G43.909 Migraine, unspecified, not intractable, without status migrainosus; F17.210 Nicotine dependence, cigarettes, uncomplicated; Y08.89XA Assault by other specified means, initial encounter; Y93.89 Activity, other specified; Y92.89 Other specified places as the place of occurrence of the external cause; Y99.8 Other external cause status
CPT/HCPCS: 99283